=== PATIENT | male | born 1965 | race Caucasian/White ===

== ENCOUNTER 2016-09-05 07:18 | Day surgery (SDC) | payer OTHER ==
[~2016-09-05] VITALS: Ht 167.6 cm; Wt 88.0 kg
[~2016-09-05 07:18] MED LIST: 0.9% Sodium Chloride 1,000 ML IV SCH; Sodium Chloride LOK Flush 10 mL Syringe IV PRN; fentaNYL-PF 50 mCg/mL 2 mL Inj IVPUSH PRN
[2016-09-05] MEDS ORDERED: BRIM5DRO9 OCULAR (07:42)
[2016-09-05] MEDS ORDERED: IBUP200C PO (07:42)
[2016-09-05] MEDS ORDERED: DORZ10DR OCULAR (07:42)
[2016-09-05] MEDS ORDERED: LATA2.5D6 OCULAR (07:42)
[2016-09-05] MEDS ORDERED: SIMV40TA5 PO (07:42)
[2016-09-05 07:43] VITALS: BP 143/92; PULSE 75; RESP 16; O2SAT 98
[2016-09-05] MEDS: 0.9% Sodium Chloride 1,000 ML IV SCH ×2 (07:47→08:04)
[2016-09-05 08:26] VITALS: BP 116/69; PULSE 62; RESP 15; O2SAT 97
--- NOTE | 2016-09-05 08:50 | ENDO ---
[address] [address] ENDOSCOPY PROCEDURE PATIENT: CHEYENNE BLAIR : 1965 MR#: [id number] ADMIT: 09/05/2016 JOB ID: [id number] PRIMARY PROVIDER: Summer Adam DO PROCEDURE: Colonoscopy. INDICATIONS: A 51-year-old male who reports for colon cancer screening. EQUIPMENT: PCF-H180-AL. SEDATION: 3 mg Versed, 100 mcg fentanyl. COMPLICATIONS: None identified. BOWEL PREPARATION: Fair. PROCEDURE INFORMATION: After the risks and benefits were explained, written and verbal informed consent was obtained. The patient was brought into the endoscopy suite and placed into the left lateral decubitus position. Sedation was achieved as above. A digital rectal examination was accomplished. No significant pathology appreciated. The scope was introduced into the rectum and advanced under direct visualization to the level of the cecum, as identified by the appendiceal orifice and ileocecal valve. The scope was slowly withdrawn to carefully examine the mucosa for any defects or lesions. Retroflexed views were accomplished in the rectum. The colon was decompressed, the scope removed from the patient who tolerated the procedure well. FINDINGS: No significant polyps, mass lesions, or inflammatory features identified throughout. The patient did, however, have a full-appearing appendix. At first, I thought this was going to be some sort of submucosal lesion at the base of the appendix, but then noticed a little bit of purulence at the endpoint appendix opening. Pushing on the surrounding region expressed pus from the appendiceal orifice consistent with mild appendicitis. Retroflexed views from within the rectum were unremarkable. ENDOSCOPIC DIAGNOSES: 1. Mild appendicitis. 2. Otherwise visually unremarkable colonoscopy within the limitations of bowel prep. RECOMMENDATIONS: 1. A short course of antibiotics would be reasonable. If the patient progresses to symptomatic appendicitis, then the patient is encouraged to return to the emergency department for further evaluation and surgical consultation. 2. Repeat colonoscopy in five years' time considering fair prep today.
== END 2016-09-05 23:59 | disposition home or self-care (01) ==
LOC: END 07:18
PROVIDERS: ATTEND Internal Medicine Gastroenterology
DX: Z12.11 Encounter for screening for malignant neoplasm of colon (principal); K35.80 Unspecified acute appendicitis; Z80.0 Family history of malignant neoplasm of digestive organs; E78.2 Mixed hyperlipidemia
CPT/HCPCS: 99153; G0105; G0500; J2250; J3010; J7030